=== PATIENT | female | born 1990 | race Caucasian/White ===

== ENCOUNTER 2023-06-02 08:42 | Emergency (ER) | payer SELFPAY ==
[2023-06-02 08:49] VITALS: RESP 20; BMI 42.5
[2023-06-02] MEDS ORDERED: FAMOTIDINE 20 MG/50 ML IVPB 20 MG/50 ML MG IVPB ONE ×2 (09:37→09:47)
[2023-06-02] MEDS ORDERED: ONDANSETRON 4 MG/2 ML VIAL IVPUSH ONE (09:38)
[2023-06-02] MEDS ORDERED: ONDANSETRON 4 MG/2 ML VIAL ONE (09:47)
[2023-06-02] MEDS ORDERED: MAG HYDROX/AL HYDROX/SIMETH 30 ML UNIT-DOSE CUP PO ONE (10:09)
[2023-06-02] MEDS ORDERED: MAG HYDROX/AL HYDROX/SIMETH 30 ML UNIT-DOSE CUP ONE (10:11)
[2023-06-02 10:26] LABS: BASO % 0.3 % (0-2.0); EOS % 0.6 % (0-4.5); HEMATOCRIT 41.1 % (32.4-45.2); HEMOGLOBIN 13.5 GM/dL (10.7-15.3); MCH 28.4 pg (25.7-33.7); MCHC 32.8 g/dl (32.0-36.0); MEAN CELL VOLUME 86.6 fl (80-96); MEAN PLT VOLUME 8.3 fl (7.5-11.1); MONO % 5.4 % (3.8-10.2); NEUT % 65.7 % (42.8-82.8); PLATELET COUNT 332 10^3/uL (134-434); RBC 4.75 M/mm3 (3.60-5.2); RDW 15.7 % (11.6-15.6); WHITE BLOOD COUNT 8.9 K/mm3 (4.0-10.0)
[2023-06-02 10:29] LABS: EPI CELLS 21 /uL (0-25.1); HYALINE CASTS 1 /uL (0-3.1); PH,URINE 6.5 (5.0-8.0); URINE APPEARANCE CLEAR; URINE BACTERIA 145 /uL (0-1359); URINE BILIRUBIN NEGATIVE (NEGATIVE); URINE COLOR YELLOW; URINE GLUCOSE (UA) NEGATIVE (NEGATIVE); URINE KETONE TRACE (NEGATIVE); URINE LEUK ESTERASE TRACE (NEGATIVE); URINE NITRITE NEGATIVE (NEGATIVE); URINE PROTEIN NEGATIVE (NEGATIVE); URINE RBC 10 /uL (0-23.9); URINE WBC 15 /uL (0-25.8)
[2023-06-02 10:50] LABS: POTASSIUM 4.4 mmol/L (3.5-5.1)
[2023-06-02 10:52] LABS: CALCIUM 8.8 mg/dL (8.5-10.1)
[2023-06-02 10:53] LABS: ALBUMIN 3.6 g/dl (3.4-5.0)
[2023-06-02 10:55] LABS: CREATININE 0.6 mg/dL (0.55-1.3)
[2023-06-02 10:57] LABS: BILIRUBIN,TOTAL 0.6 mg/dL (0.2-1); BLOOD UREA NITROGEN 12.4 mg/dL (7-18); TOT PROT 7.2 g/dl (6.4-8.2)
[2023-06-02] MEDS ORDERED: DICYCLOMINE HCL 20 MG TABLET PO ONE (11:02)
[2023-06-02] MEDS ORDERED: DICYCLOMINE HCL 10 MG CAPSULE ONE (11:33)
[2023-06-02 13:05] VITALS: BP 120/72; PULSE 70; TEMP 98
== END 2023-06-02 13:03 | disposition home or self-care (01) ==
LOC: JER 08:42
PROC: 3E033GC Introduction of Other Therapeutic Substance into Peripheral Vein, Percutaneous Approach (ICD-10-PCS; principal; 2023-06-02)
PROC: 3E033GC Introduction of Other Therapeutic Substance into Peripheral Vein, Percutaneous Approach (ICD-10-PCS; 2023-06-02)
DX: R10.84 Generalized abdominal pain (principal); R10.12 Left upper quadrant pain; R11.0 Nausea; K59.00 Constipation, unspecified
CPT/HCPCS: 36415; 74177-TC; 80053; 81003; 83690; 84703; 85025; 99285-25; Q9967

== ENCOUNTER 2024-04-18 08:59 | Emergency (ER) | payer OTHER ==
[2024-04-18 09:05] VITALS: BP 120/81; PULSE 82; RESP 16; TEMP 98.4; BMI 45.8
[2024-04-18] MEDS ORDERED: ACETAMINOPHEN 325 MG TABLET (FP) ONE (11:04)
[2024-04-18] MEDS: ACETAMINOPHEN 325 MG TABLET (FP) PO ONE (11:06)
[2024-04-18 12:32] LABS: HIV INTERPRETATION NEGATIVE (NEGATIVE)
== END 2024-04-18 12:11 | disposition home or self-care (01) ==
LOC: JERFT 08:59
DX: N60.81 Other benign mammary dysplasias of right breast (principal); N61.0 Mastitis without abscess
CPT/HCPCS: 36415; 76642-TC-RT; 86803; 87389; 99284-25

== ENCOUNTER 2024-12-20 06:36 | Day surgery (SDC) | payer OTHER ==
[2024-12-19 11:40] VITALS: BMI 38.9
[2024-12-20 11:27] VITALS: TEMP 98.2
[2024-12-20 12:06] VITALS: BP 128/86; PULSE 67; RESP 15
== END 2024-12-20 12:25 | disposition home or self-care (01) ==
LOC: JASU-ENDO 06:36
PROVIDERS: ATTEND Internal Medicine Gastroenterology
PROC: 0DB68ZX Excision of Stomach, Via Natural or Artificial Opening Endoscopic, Diagnostic (ICD-10-PCS; 2024-12-20)
PROC: 0DB58ZX Excision of Esophagus, Via Natural or Artificial Opening Endoscopic, Diagnostic (ICD-10-PCS; 2024-12-20)
PROC: 0DB98ZX Excision of Duodenum, Via Natural or Artificial Opening Endoscopic, Diagnostic (ICD-10-PCS; principal; 2024-12-20 11:30)
DX: K29.50 Unspecified chronic gastritis without bleeding (principal); R13.10 Dysphagia, unspecified; R10.13 Epigastric pain
CPT/HCPCS: 81025; 88305-TC; 88342-TC

== ENCOUNTER 2025-01-12 07:10 | Day surgery (SDC) | payer OTHER ==
[2025-01-10 09:49] VITALS: BMI 38.4
[2025-01-12] MEDS ORDERED: ONDANSETRON 4 MG/2 ML VIAL IVPUSH PRN (09:20)
[2025-01-12] MEDS ORDERED: oxyCODONE HCL 5 MG TABLET PO PRN (09:20)
[2025-01-12] MEDS ORDERED: MIDAZOLAM HCL 2 MG/2 ML SINGLE DOSE VIAL ONE ×2 (13:50→14:28)
[2025-01-12] MEDS ORDERED: PROPOFOL 20 ML ONE ×2 (13:50→14:42)
[2025-01-12] MEDS ORDERED: PROPOFOL 40 ML ONE (13:52)
[2025-01-12] MEDS ORDERED: KETAMINE HCL 200 MG/20 ML VIAL ONE (14:31)
[2025-01-12] MEDS: ceFAZolin SODIUM 1 GM VIAL IVPB ONE (14:36)
[2025-01-12] MEDS: FERRIC SUBSULFATE 500 ML BOTTLE TP ONE (15:22)
[2025-01-12] MEDS: LIDOCAINE 1%/EPI 1:100000 (20 ML MULTI DOSE VIAL) INF ONE (15:22)
[2025-01-12 17:10] VITALS: BP 117/65; PULSE 64; RESP 16; TEMP 97.7
== END 2025-01-12 17:45 | disposition home or self-care (01) ==
LOC: JASU-SURG 07:10
PROVIDERS: ATTEND Obstetrics & Gynecology Obstetrics
PROC: 0UBC7ZX Excision of Cervix, Via Natural or Artificial Opening, Diagnostic (ICD-10-PCS; principal; 2025-01-12 12:30)
DX: D06.0 Carcinoma in situ of endocervix (principal)
CPT/HCPCS: 86850; 86900; 86901; 88305-TC; 88307-TC; 88341-TC; 88342-TC; 94760